=== PATIENT | female | born 1975 | race Two or more races ===

== ENCOUNTER 2019-11-09 15:25 | Emergency (ER) | payer OTHER ==
[~2019-11-09] VITALS: Ht 162.6 cm; Wt 63.5 kg
[2019-11-09] MEDS ORDERED: PROMETH-CODEIN 65 ML PO (18:41)
== END 2019-11-09 19:28 | disposition home or self-care (01) ==
LOC: ER 15:25
DX: J45.998 Other asthma (principal)